=== PATIENT | female | born 1965 | race Two or more races ===

== ENCOUNTER 2024-05-05 21:11 | Emergency (ER) | payer BC ==
[2024-05-05 22:25] LABS: Influenza A by NAA Not Detected (NotDetected); Influenza B by NAA Not Detected (NotDetected); SARS-CoV-2 NAA Rapid Test DETECTED (NotDetected)
[2024-05-05] MEDS ORDERED: Benzonatate 100 MG CAP ONE (22:57)
[2024-05-05] MEDS ORDERED: Ibuprofen 200 MG TAB ONE (22:57)
== END 2024-05-05 23:02 | disposition home or self-care (01) ==
LOC: ERS 21:11
DX: U07.1 COVID-19 (principal); E03.9 Hypothyroidism, unspecified; Z79.899 Other long term (current) drug therapy
CPT/HCPCS: 71046